=== PATIENT | female | born 1980 | race Caucasian/White ===

== ENCOUNTER 2020-08-17 16:22 | Emergency (ER) | payer MEDICAID ==
[~2020-08-17] VITALS: Ht 165.1 cm; Wt 54.5 kg
[2020-08-17 16:49] VITALS: TEMP 98
[2020-08-17 17:44] LABS: BASO % 0.2 % (0.0-2.0); EOS # 0.1 (0.0-0.7); EOS % 0.6 % (0-4.0); GRAN # 10.6 (1.4-6.5); GRAN % 75.7 % (42.2-75.2); HEMOGLOBIN 11.9 g/dl (12.5-16.0); LYMPH # 2.3 (1.2-3.4); LYMPH % 16.4 % (20.0-51.0); MEAN CELL VOLUME 88 fl (80.0-100.0); MEAN CORPUSCULAR HEMOGLOBIN 29 pg (27.0-31.0); MEAN CORPUSCULAR HGB CONC 33 g/dl (33.0-37.0); MEAN PLATELET VOLUME 10.3 fl (7.4-10.4); MONO # 0.9 (0.1-0.6); MONO % 6.6 % (1.7-9.3); PLATELET COUNT 234 K/mm3 (130-400); RED BLOOD COUNT 4.09 M/mm3 (4.10-5.30); REDCELL DISTRIBUTION WIDTH-CV 13.7 % (11.5-14.5)
[2020-08-17 18:09] LABS: ACETAMINOPHEN < 10 ug/mL (10-30); ALANINE AMINOTRANSFERASE 16 U/L (4-34); ALBUMIN 4.1 gm/dL (3.5-5.0); ALCOHOL(ethanol),MEDICAL < 10 mg/dL; ALKALINE PHOSPHATASE 73 U/L (50-136); ANION GAP 7 mmol/L (7-16); AST,SGOT 18 U/L (15-37); BILIRUBIN,TOTAL 0.5 mg/dL (0.0-1.0); BLOOD UREA NITROGEN 18 mg/dL (7-17); CARBON DIOXIDE 28 mmol/L (22-30); CHLORIDE 100 mmol/L (98-107); CREATININE, serum 0.77 (0.52-1.25); GLUCOSE 112 mg/dL (74-106); HEMATOCRIT 36.1 % (37.0-47.0); POTASSIUM 3.8 mmol/L (3.4-5.0); SALICYLATE < 1.0 mg/dL; SODIUM 135 mmol/L (137-145); TOTAL PROTEIN 7.5 gm/dL (6.4-8.2)
[2020-08-17 18:19] LABS: COLLECTION METHOD CLEAN CATCH
[2020-08-17] MEDS ORDERED: MINIPRESS 1M1 MG/CAP PO (18:27)
[2020-08-17] MEDS ORDERED: AMBIEN 5MG TABLE5 MG PO (18:28)
[2020-08-17] MEDS ORDERED: XANAX 0.5MG0.5 MG PO (18:28)
[2020-08-17] MEDS ORDERED: CELEXA 20MG20 MG/TAB PO (18:28)
[2020-08-17] MEDS ORDERED: KEPPRA1000 MG PO (18:28)
[2020-08-17] MEDS ORDERED: ANTIVERT 25MG25 MG PO (18:29)
[2020-08-17 18:32] LABS: PH 5 (5-8); SQUAMOUS EPITHELIAL 0-2 /hpf; URINE APPEARANCE Clear; URINE BACTERIA Rare /hpf; URINE BILIRUBIN Negative (NEGATIVE); URINE BLOOD 2+ (NEGATIVE); URINE COLOR Straw; URINE GLUCOSE Negative (NEGATIVE); URINE KETONE Negative (NEGATIVE); URINE LEUKOCYTE ESTERASE Negative (NEGATIVE); URINE NITRATE Negative (NEGATIVE); URINE PROTEIN(semi-quant) Negative (NEGATIVE); URINE RBC 0-2 /hpf; URINE UROBILINOGEN Negative (NEGATIVE)
[2020-08-17 18:54] LABS: TRICYCLIC ANTIDEPRESS URINE NEGATIVE
[2020-08-17 22:57] VITALS: BP 114/70; PULSE 78
== END 2020-08-17 22:57 | disposition home or self-care (01) ==
LOC: COL.ER 16:22
PROVIDERS: Physician Assistant
DX: F29 Unspecified psychosis not due to a substance or known physiological condition (principal); G40.909 Epilepsy, unspecified, not intractable, without status epilepticus; F41.9 Anxiety disorder, unspecified; F32.9 Major depressive disorder, single episode, unspecified; F43.10 Post-traumatic stress disorder, unspecified; Z88.6 Allergy status to analgesic agent

== ENCOUNTER → 2020-10-03 | Outpatient (CLI) | payer MEDICAID ==
[~2020-10-03] MED LIST: AMBIEN 5MG TABLE5 MG PO; ANTIVERT 25MG25 MG PO; CELEXA 20MG20 MG/TAB PO; KEPPRA1000 MG PO; MINIPRESS 1M1 MG/CAP PO; XANAX 0.5MG0.5 MG PO
== END ==
LOC: COL.CARD 09:45
DX: R56.9 Unspecified convulsions (principal)

== ENCOUNTER → 2021-01-19 | Outpatient (CLI) | payer MEDICAID | LOC: MC.RAD 09:55 | DX: N60.02 Solitary cyst of left breast (principal); N60.01 Solitary cyst of right breast; N63.20 Unspecified lump in the left breast, unspecified quadrant ==